=== PATIENT | male | born 1975 | race Caucasian/White ===

== ENCOUNTER 2020-03-12 13:06 | Emergency (ER) | payer SELFPAY ==
[~2020-03-12] VITALS: Ht 180.3 cm; Wt 99.8 kg
--- NOTE | 2020-03-12 21:48 | EKG ---
[facility] [address] [place] [address] Signed Normal sinus rhythm Minimal voltage criteria for LVH, may be normal variant T wave abnormality, consider inferior ischemia Abnormal ECG No previous ECGs available Confirmed by KRISTINE CARRASQUILLO MD ([id number]) on 03/12/2020 9:48:18 PM Electronically Signed By: KRISTINE CARRASQUILLO MD 03/12/20 2148 PATIENT NAME: ANTONIODIANNA MANNING Electrocardiogram DATE OF : 75 PHYSICIAN: KRISTINE CARRASQUILLO MD REPORT #: [id number] REPORT IS CONFIDENTIAL AND NOT TO BE RELEASED WITHOUT AUTHORIZATION
== END 2020-03-12 15:35 | disposition home or self-care (01) ==
LOC: ED 13:06
DX: R07.9 Chest pain, unspecified (principal)
CPT/HCPCS: 71045; 80048; 84484; 85025; 93005; 93010; 99285-25